=== PATIENT | female | born 1985 | race Caucasian/White ===

== ENCOUNTER 2016-05-12 05:00 | Inpatient (IN) | payer OTHER ==
[2016-05-12] MEDS ORDERED: DEXTROSE 5%-LACTATED RINGERS 1,000 ML IV ONE (05:15)
[2016-05-12] MEDS ORDERED: DEXTROSE 5%-LACTATED RINGERS 500 ML IV SCH (06:30)
[2016-05-12 06:43] LABS: BASOPHIL 0.2 % (0-2.0); EOSINOPHIL 2.3 % (0-4.5); MCH 32.6 pg (25.7-33.7); MEAN PLT VOLUME 9.9 fl (7.5-11.1); NEUTROPHILS 64.8 % (42.8-82.8); PLATELET COUNT 117 K/MM3 (134-434); RDW 13.5 % (11.6-15.6); WHITE BLOOD COUNT 5.7 K/mm3 (4.0-10.0)
[2016-05-12 06:54] LABS: INR 0.96 (0.82-1.09); PROTHROMBIN TIME (PATIENT) 10.5 SEC (9.98-11.88)
[2016-05-12 06:57] LABS: ACTIVATED PTT 28.5 SECONDS (26.9-34.4)
[2016-05-12 07:02] LABS: CALCIUM 8.4 mg/dL (8.5-10.1); CREATININE 0.5 mg/dL (0.55-1.02)
[2016-05-12] MEDS ORDERED: DEXTROSE 5%-LACTATED RINGERS 1,000 ML IV SCH (07:30)
[2016-05-12] MEDS ORDERED: ELECTROLYTE-148 SOLN 500 ML IV ONE (08:00)
[2016-05-12] MEDS ORDERED: CITRIC ACID/SODIUM CITRATE 30 ML UNIT-DOSE CUP PO ONE (08:00)
[2016-05-12 08:28] VITALS: BMI 26.2
[2016-05-12] MEDS ORDERED: ELECTROLYTE-148 SOLN 1,000 ML IV SCH (08:30)
[2016-05-12] MEDS ORDERED: ONDANSETRON 4 MG/2 ML VIAL IVPB PRN (09:26)
[2016-05-12] MEDS ORDERED: IBUPROFEN 800 MG/8 ML IJ IVPB PRN (09:28)
[2016-05-12] MEDS ORDERED: ACETAMINOPHEN 1000 MG/100 ML VIAL (NON FORMULARY) IVPB PRN (09:28)
--- NOTE | 2016-05-12 09:29 | HP ---
Past Medical History - Primary Care Physician PCP:: Mnauel Wong - Admission Chief Complaint: 40 weeks, previous c/s .labor ,request of repeat c/s History of Present Illness: 28 yo f edc by sono 05/12/16 , c/o contraction since 4 am today, no rom. , no bleeding, cx ift 50 vx -3 mi, fhr cat 1 contraction q 4 min History Source: Patient Limitations to Obtaining History: No Limitations - Past Medical History Pulmonary: Yes: Asthma (last attack 2 years ago) ...: 5 ...Para: 1 ...Term: 1 ...: 0 ...Spon : 2 ...Induced : 1 ...Multiple Gestation: 0 ...LMP: 08/06/15 ... Weeks Gestation by Dates: 40.0 ...EDC by Dates: 05/12/16 ...EDC by Sono: 05/12/16 - Past Surgical History Past Surgical History: Yes: (for pih, induction , failure to dilate) Hx Myomectomy: No Hx Transabdominal Cerclage: No - Smoking History Smoking history: Never smoked Have you smoked in the past 12 months: No - Alcohol/Substance Use Hx Alcohol Use: No - Social History Usual Living Arrangement: Yes: With Spouse History of Recent Travel: No Home Medications - Allergies Allergies/Adverse Reactions: Allergies Allergy/AdvReac Type Severity Reaction Status Date / Time No Known Allergies Allergy Verified 05/12/16 08:09 - Home Medications Home Medications: Ambulatory Orders Vit/Iron Fumarate/FA [ Tablet] 1 each PO DAILY 09/29/15 Review of Systems - Review of Systems Constitutional: reports: No Symptoms Eyes: reports: No Symptoms HENT: reports: No Symptoms Neck: reports: No Symptoms Cardiovascular: reports: No Symptoms Respiratory: reports: No Symptoms Gastrointestinal: reports: Abdominal Pain Genitourinary: reports: No Symptoms Breasts: reports: No Symptoms Reported Musculoskeletal: reports: No Symptoms Integumentary: reports: No Symptoms Neurological: reports: No Symptoms Endocrine: reports: No Symptoms Hematology/Lymphatic: reports: No Symptoms Psychiatric: reports: No Symptoms Pain Intensity: 6 Physical Exam - Maternity Vital Signs: Vital Signs Temperature 97.7 F 05/12/16 08:00 Pulse Rate 72 05/12/16 08:00 Respiratory Rate 20 05/12/16 08:00 Blood Pressure 114/57 05/12/16 08:00 O2 Sat by Pulse Oximetry (%) Constitutional: Yes: Well Nourished, No Distress, Calm Eyes: Yes: WNL, Conjunctiva Clear, EOM Intact HENT: Yes: WNL, Atraumatic, Normocephalic Neck: Yes: WNL, Supple, Trachea Midline Cardiovascular: Yes: WNL, Regular Rate and Rhythm Breast(s): Yes: WNL - Abdominal Exam/OB Fundal Height: 40 Number of Fetuses: Single Presentation: Vertex Contractions: Yes Regularity: Regular Intensity: Mod/Strong Monitor Mode: External Heart Rate Location: [facility] Category: I Accelerations: Uniform Decelerations: None - Vaginal Exam/OB Vaginal Bleediing: No Speculum Exam: No Dilatation (cm): 1 cm Effacement (%): 50 Amniotic Membrane Status: Intact Presentation: Vertex/Position Station: -3 - Physical Exam Extremities: Yes: WNL Edema: Yes Edema: LLE: Trace, RLE: Trace Integumentary: Yes: WNL Deep Tendon Reflex Grade: Normal +2 ...Motor Strength: WNL Psychiatric: Yes: WNL - Labs Lab Results: CBC, BMP 05/12/16 06:16 05/12/16 06:16 Hemorrhage Risk Assessment - Risk Factors Medium Risk Factors: Yes: Prior , uterine surgery,or multiple laparotomies Risk Score: 1 Risk Level: Medium Risk Problem List - Problems (1) 40 weeks gestation of Code(s): Z3A.40 - 40 WEEKS GESTATION OF (2) Previous section complicating Code(s): O34.21 - MATERNAL CARE FOR SCAR FROM PREVIOUS * DO NOT USE * (3) First stage of labor established Code(s): FTN4851 - Assessment/Plan request of c/s risk of repeat c/s discussed, aware risk of infection, bleeding, injury to surrounding tissue, bowel, bladder, ureter, vessels, post op complication, dvt, anesthesia complication, discussed, encouraged, declined
[2016-05-12] MEDS ORDERED: OXYTOCIN 20 UNITS in 0.9% NS 1,000 ML IV SCH (16:30)
--- NOTE | 2016-05-13 09:39 | PN ---
Progress Note (short form) - Note Progress Note: Post op day#1.S/P C section under spinal anesthesia with duramorph uneventful.Patient stable and does not c/o any pain but she is on pain medication medication as needed.No any anesthesia related problem.Patient dc from the anesthesia care.
[2016-05-13 09:45] LABS: BASOPHIL 0.5 % (0-2.0); EOSINOPHIL 0.6 % (0-4.5); MCH 32.6 pg (25.7-33.7); MCHC 33.5 g/dl (32.0-36.0); MEAN CELL VOLUME 97.2 fl (80-96); NEUTROPHILS 72.3 % (42.8-82.8); PLATELET COUNT 89 K/MM3 (134-434); RDW 13.8 % (11.6-15.6); WHITE BLOOD COUNT 10.7 K/mm3 (4.0-10.0)
--- NOTE | 2016-05-13 09:48 | PN ---
Post Progress Note - Subjective Subjective: no c/o pain not voided since le is taken out Post Day: 1 Type of Delivery: Repeat C/S Vital Signs: Vital Signs Temperature 97.8 F 05/13/16 08:27 Pulse Rate 72 05/13/16 08:27 Respiratory Rate 20 05/13/16 08:27 Blood Pressure 108/72 05/13/16 08:27 O2 Sat by Pulse Oximetry (%) 100 05/12/16 11:15 Breast Exam: Yes: Soft, Other (plnas to BF ). No: Engorged Uterus: Yes: Fundus Firm, Fundus below umbilicus, Non-tender Incision: Yes: Dressing dry and intact Abdomen/GI: Yes: Abdomen soft (bs active ), Passing flatus, Tolerating PO (diet ). No: Abdominal Distention, Tender Lochia: Yes: Rubra Lochia, amount: Moderate Extremities: Yes: Calves non-tender, Edema Perineum: Yes: Intact Activity: Other (not oob yet ) - Labs Labs: CBC WBC 5.7 K/mm3 (4.0-10.0) 05/12/16 06:16 RBC 3.89 M/mm3 (3.60-5.2) 05/12/16 06:16 Hgb 12.7 GM/dL (10.7-15.3) 05/12/16 06:16 Hct 37.4 % (32.4-45.2) 05/12/16 06:16 MCV 96.0 fl (80-96) 05/12/16 06:16 MCHC 34.0 g/dl (32.0-36.0) 05/12/16 06:16 RDW 13.5 % (11.6-15.6) 05/12/16 06:16 Plt Count 117 K/MM3 (134-434) L D 05/12/16 06:16 MPV 9.9 fl (7.5-11.1) D 05/12/16 06:16 Neutrophils % 64.8 % (42.8-82.8) 05/12/16 06:16 Lymphocytes % 22.5 % (8-40) 05/12/16 06:16 Monocytes % 10.2 % (3.8-10.2) 05/12/16 06:16 Eosinophils % 2.3 % (0-4.5) 05/12/16 06:16 Basophils % 0.2 % (0-2.0) 05/12/16 06:16 Assessment/Plan stable. plan ct po care cbc today pending
[2016-05-13] MEDS: ENOXAPARIN NA (PORCINE) 40 MG/0.4 ML DISP.SYRIN SQ SCH (09:51)
[2016-05-13] MEDS ORDERED: INFLUENZA VACCINE 45 MCG/0.5 ML (MDV 16-17) IM ONE (10:00)
[2016-05-13] MEDS ORDERED: INFLUENZA VACCINE 60 MCG/0.5 ML (P/F DISP.SYRIN 16-17) IM ONE (10:00)
[2016-05-13] MEDS: SIMETHICONE 80 MG TAB.CHEW (FP) PO PRN ×2 (13:24→22:17)
[2016-05-13] MEDS: ACETAMINOPHEN 325 MG TABLET (FP) PO PRN ×2 (13:24→22:17)
[2016-05-13] MEDS: IBUPROFEN 600 MG TABLET (FP) PO PRN ×2 (13:26→22:17)
[2016-05-14] MEDS: ACETAMINOPHEN 325 MG TABLET (FP) PO PRN ×3 (05:54→19:57)
[2016-05-14] MEDS: SIMETHICONE 80 MG TAB.CHEW (FP) PO PRN ×3 (05:54→19:57)
[2016-05-14] MEDS: IBUPROFEN 600 MG TABLET (FP) PO PRN ×3 (05:55→19:58)
--- NOTE | 2016-05-14 07:04 | PN ---
Post Progress Note Post Day: 2 Type of Delivery: Repeat C/S Vital Signs: Vital Signs Temperature 97.4 F L 05/13/16 21:30 Pulse Rate 74 05/13/16 21:30 Respiratory Rate 20 05/13/16 21:30 Blood Pressure 120/76 05/13/16 21:30 O2 Sat by Pulse Oximetry (%) 100 05/12/16 11:15 Breast Exam: Yes: Soft Uterus: Yes: Fundus Firm Incision: Yes: Dressing dry and intact Abdomen/GI: Yes: Abdomen soft Lochia: Yes: Rubra Lochia, amount: Small Extremities: Yes: Calves non-tender Perineum: Yes: Intact Activity: Ambulating - Labs Labs: CBC WBC 10.7 K/mm3 (4.0-10.0) H D 05/13/16 09:15 RBC 3.66 M/mm3 (3.60-5.2) 05/13/16 09:15 Hgb 11.9 GM/dL (10.7-15.3) 05/13/16 09:15 Hct 35.6 % (32.4-45.2) 05/13/16 09:15 MCV 97.2 fl (80-96) H 05/13/16 09:15 MCHC 33.5 g/dl (32.0-36.0) 05/13/16 09:15 RDW 13.8 % (11.6-15.6) 05/13/16 09:15 Plt Count 89 K/MM3 (134-434) L D 05/13/16 09:15 MPV 10.0 fl (7.5-11.1) 05/13/16 09:15 Neutrophils % 72.3 % (42.8-82.8) 05/13/16 09:15 Lymphocytes % 16.2 % (8-40) D 05/13/16 09:15 Monocytes % 10.4 % (3.8-10.2) H 05/13/16 09:15 Eosinophils % 0.6 % (0-4.5) 05/13/16 09:15 Basophils % 0.5 % (0-2.0) 05/13/16 09:15 Assessment/Plan as above oob reg diet pain meds
[2016-05-14] MEDS: ENOXAPARIN NA (PORCINE) 40 MG/0.4 ML DISP.SYRIN SQ SCH (10:41)
[2016-05-15] MEDS: SIMETHICONE 80 MG TAB.CHEW (FP) PO PRN ×2 (01:02→11:25)
[2016-05-15] MEDS: ACETAMINOPHEN 325 MG TABLET (FP) PO PRN ×2 (01:02→11:26)
[2016-05-15] MEDS: IBUPROFEN 600 MG TABLET (FP) PO PRN ×2 (01:03→11:25)
[2016-05-15 08:35] LABS: BASOPHIL 0.7 % (0-2.0); EOSINOPHIL 6.6 % (0-4.5); MCH 32.6 pg (25.7-33.7); MCHC 33.7 g/dl (32.0-36.0); MEAN CELL VOLUME 96.8 fl (80-96); MEAN PLT VOLUME 10.3 fl (7.5-11.1); NEUTROPHILS 51.5 % (42.8-82.8); PLATELET COUNT 104 K/MM3 (134-434); RDW 13.9 % (11.6-15.6); WHITE BLOOD COUNT 5.1 K/mm3 (4.0-10.0)
[2016-05-15] MEDS: ENOXAPARIN NA (PORCINE) 40 MG/0.4 ML DISP.SYRIN SQ SCH (10:42)
[2016-05-15 11:47] VITALS: BP 121/53; PULSE 56; TEMP 98.3
--- NOTE | 2016-05-16 07:26 | OP ---
DATE OF OPERATION: 05/12/2016 PREOPERATIVE DIAGNOSES: at 40 weeks, previous section, labor, request of repeat section. POSTOPERATIVE DIAGNOSES: at 40 weeks, previous section, labor, request of repeat section. PROCEDURE: Repeat low segment transverse section. SURGEON: Manuel Wong MD [employer]S [employer]S ATTENDANT: ALIE Raymond ANESTHESIA: Spinal. ESTIMATED BLOOD LOSS: 500 mL. FINDINGS: A live baby boy, 9, 9. OPERATION: Patient was taken to the operating room. Had adequate spinal anesthesia. Abdomen and perineum were prepped and draped. Pfannenstiel abdominal skin incision was made. Abdominal wall was cut layer by layer until peritoneum was exposed and incised. Upon entering the abdominal cavity, lower uterine segment was identified and uterovesical fold of peritoneum established. Bladder was pushed down. Then, with the lower blade of the [place] retractor in the pelvis, a low transverse incision was made. Amniotic sac was entered. Clear fluid. Head delivered. Nasopharynx was suctioned and live baby was delivered in breech position without any difficulty. Placenta was delivered manually. Uterine cavity was cleaned of all remaining tissue. Then, uterus incision was closed in 2 layers, 1st layer with 0 Biosyn continuous suture, the 2nd layer with 0 Biosyn imbricating the 1st layer. Bladder flap was closed with 0 Biosyn continuous suture. Both tubes and ovaries were checked, were normal. No active bleeding was seen. All the lap pad, sponge, and instrument counts were correct. Then, peritoneum was closed with 0 Biosyn continuous suture. Muscles were brought together with interrupted suture of 0 Biosyn. Fascia was closed with 0 Biosyn continuous suture; subcutaneous fat, interrupted suture of 0 Biosyn; and the skin was closed with elisa. Patient tolerated procedure well, left the OR in good condition. Jus [id number]
--- NOTE | 2016-05-18 08:00 | DS ---
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 Vital Signs: Vital Signs Temperature 98.3 F 05/15/16 10:00 Pulse Rate 56 L 05/15/16 10:00 Respiratory Rate 20 05/15/16 10:00 Blood Pressure 121/53 05/15/16 10:00 O2 Sat by Pulse Oximetry (%) 100 05/12/16 11:15 Constitutional: Yes: Well Nourished, No Distress, Calm Eyes: Yes: WNL, Conjunctiva Clear, EOM Intact HENT: Yes: WNL, Atraumatic, Normocephalic Neck: Yes: WNL, Supple, Trachea Midline Cardiovascular: Yes: WNL, Regular Rate and Rhythm Respiratory: Yes: WNL, Regular, CTA Bilaterally Gastrointestinal: Yes: WNL ...Rectal Exam: Yes: WNL Renal/: Yes: WNL ....Post : Yes: Uterus firm, Uterus non-tender, Slight lochia rubra Breast(s): Yes: WNL Musculoskeletal: Yes: WNL Extremities: Yes: WNL Integumentary: Yes: WNL Wound/Incision: Yes: Clean/Dry, Well Approximated, [place] Intact, Dressing Removed Neurological: Yes: WNL, Alert, Oriented ...Motor Strength: WNL Psychiatric: Yes: WNL, Alert, Oriented Labs: CBC, BMP 05/15/16 06:30 05/12/16 06:16 Delivery - Delivery Section: Repeat (no complication), Low Flap Transverse Type of Anesthesia: Spinal EBL (cc): 500 Delivery, Single - Stages of Labor Date 1st Stage Initiatied: 05/12/16 Time 1st Stage Initiated: 03:20 Date of Delivery: 05/12/16 Time of Delivery: 09:54 Time Placenta Delivered: 09:55 Placenta: Yes: Expressed - Condition of Infant 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 Present: Yes Name: Groening,Elaine Gender: Male Weight: 6 lb 11 oz Total Hours ROM (Hrs/Mins): 3minutes - 1 Minute Total Score: 8 5 Minutes Total Score: 9 - [place] Feeding Plan Initial Plan: Exclusive throughout hospitalization Discharge Summary Reason For Visit: 40 weeks, labor, previous c/s Procedures: Principal: repeat LST c/s Hospital Course: uneventful Condition: Good - Instructions Diet, Activity, Other Instructions: regular diet, follow up [facility] care on wednesday for elisa removal Referrals: Manuel Wong MD [Staff Physician] - Disposition: HOME - Home Medications Comprehensive Discharge Medication List: Ambulatory Orders Vit/Iron Fumarate/FA [ Tablet] 1 each PO DAILY 09/29/15 Ibuprofen [Motrin -] 600 mg PO QID #28 tablet 05/15/16
--- NOTE | 2016-05-18 14:38 | PATH ---
Surgical Pathology Report Patient Name: AB HARRIS [facility]. Rec. #: [id number] /Age/Gender: 1985 (Age: 30) / F Account: [id number] Location: [facility] OBS/SCIENCE SPECIALIST Taken: 05/12/2016 Received: 05/13/2016 Reported: 05/18/2016 Physicians: Manuel Wong M.D. Specimen(s) Received PLACENTA Clinical History , c/section 06/2010, SAB x2, VTOP [id number] c/section Final Diagnosis PLACENTA, DELIVERY: FOCALLY DISRUPTED , (SMALL <400 GM), THIRD TRIMESTER PLACENTA WITH FOCAL FIBRIN THROMBUS, MILD INCREASE IN PREVILLOUS, PERIVILLOUS, AND PRECHORIONIC FIBRIN DEPOSITION, THREE VESSEL UMBILICAL CORD WITH FOCAL MILD FUNISITIS, AND PLACENTAL MEMBRANES FOCAL ACUTE CHORIOAMNIONITIS. Electronically Signed Agus Robertson M.D. Gross Description The specimen is received fresh, labeled "placenta" and is a 356 gram, 18.0 x 15.5 x 2.0 cm placenta with attached membranes and umbilical cord. The attached membranes are leonard with focal opacities and display focal circum-marginate insertion. The umbilical cord measures 31 cm in length and averages 0.8 cm in diameter. The cord inserts centrally. No true knots or strictures are identified. Cut surface of the umbilical cord reveals 3 vessels. The surface is hutson-blue with fibrin deposition and appropriate caliber vessels. The maternal surface is red-brown with focal defects. Sectioning reveals a 1.1 cm in greatest dimension leonard, firm intraparenchymal lesion. The remaining placental parenchyma is red-brown and spongy. Dry Molder sections are submitted in 4 cassettes as follows: 1-membrane rolls and umbilical cord; 2-lesion; 3-4-kjaq-thickness sections of placenta 05/15/201605/15/2016
== END 2016-05-15 14:20 | disposition home or self-care (01) | DRG 766 ==
LOC: JDEL 05:00 → JLDR 08:00 → J3W 11:40
PROVIDERS: ADMIT Obstetrics & Gynecology; ATTEND Obstetrics & Gynecology
PROC: 10D00Z1 Extraction of Products of Conception, Low, Open Approach (ICD-10-PCS; principal; 2016-05-12)
DX: O48.0 Post-term pregnancy (principal); O34.211 Maternal care for low transverse scar from previous cesarean delivery; Z3A.40 40 weeks gestation of pregnancy; Z37.0 Single live birth
CPT/HCPCS: 36415; 80048; 85025; 85610; 85730; 86593; 86850; 86900; 86901; 88307-TC; 90686; G0008